=== PATIENT | male | born 1980 | race Hispanic/Latino ===

== ENCOUNTER 2018-07-20 17:50 | Emergency (ER) | payer BC ==
[2018-07-20 19:08] LABS: Absolute Monocytes 0.7 K/uL (0.1-1.3); Basophils % 1.7 % (0-1.3); Eosinophils % 4.5 % (0-4.4); Hematocrit 48.8 % (39.6-49.0); Lymphocytes % 24.6 % (15.3-44.8); MCH 30.6 pg (27.0-35.0); MCV 88.8 fL (80-100); MPV 8.6 fL (7.6-11.3); Monocytes % 8.7 % (3.3-12.3)
[2018-07-20] MEDS ORDERED: KETOROLAC 30 MG/ML INJ ONE (19:13)
--- NOTE | 2018-07-20 19:14 | RAD REPORT ---
EXAM DESCRIPTION: CT - Stone Protocol - 07/20/2018 7:04 pm CLINICAL HISTORY: Flank pain. right lower back pain COMPARISON: No comparisons TECHNIQUE: Axial images were obtained without oral or IV contrast. Lack of contrast limits solid org an and vascular assessment. The pfcba-sp-pees spans the entirety of the system partially obscuring uppermost abdomen and lung bases. Coronal reformatted images were obtained and reviewed. All CT scans are performed using dose optimization technique as appropriate and may include automated exposure control or mA/KV adjustment according to patient size. FINDINGS: The lower lung peñaloza are clear. Imaged portions of the liver and spleen show no suspicious findings on non-contrast imaging. The panc reas and adrenal glands are normal. No pathologic lymphadenopathy in the abdomen or pelvis. No urinary tract stones or obstructive uropathy. 13 mm cyst is present cortex of left kidney. No bowel obstruction, free air, free fluid or abscess. Normal appendix noted.Sigmoid diverticulosis c herb without diverticulitis. No significant bony abnormality. IMPRESSION: No urinary tract stones or obstructive uropathy.
[2018-07-20 19:29] LABS: Albumin 3.7 g/dL (3.4-5.0); Bilirubin Direct 0.2 mg/dL (0-0.2); Bilirubin Total 0.5 mg/dL (0.2-1.0); Potassium 3.4 mmol/L (3.5-5.1); Protein, Total 7.5 g/dL (6.4-8.2)
[2018-07-20 19:35] LABS: Urine Blood TRACE (NEG); Urine Glucose NEGATIVE (NEG); Urine Protein NEGATIVE (NEG); Urine Specific Gravity 1.025 (1.005-1.030)
--- NOTE | 2018-07-20 19:45 | RAD REPORT ---
EXAM DESCRIPTION: RAD - Forearm Right - 07/20/2018 7:19 pm CLINICAL HISTORY: Pain;Swelling COMPARISON: No comparisons FINDINGS: No bone or joint abnormality is detected.
--- NOTE | 2018-07-20 20:31 | EDPHYS ---
Physician Documentation [facility] Name: Isaac Metcalf Age: 37 yrs Sex: Male : 1980 Arrival Date: 07/20/2018 Time: 17:53 Bed 28 Private MD: Raphael Johnson ED Physician Albert Tolbert HPI: 07/20 18:35 This 37 yrs old Male presents to ER via Ambulatory with complaints of Back cp Pain, Arm Pain, Blood Pressure Problem. 18:35 The patient presents with pain that is acute, with no known mechanism of injury. cp 18:35 The symptoms are located in the low back. Onset: The symptoms/episode began/occurred 2 cp day(s) ago. The pain radiates to the right buttock. Associated signs and symptoms: Pertinent positives: elevated blood pressure, Pertinent negatives: abdominal pain, chest pain, constipation, fever, headache, incontinence, numbness, tingling, urinary retention, weakness. The problem was sustained bending and lifting at work. Patient also c/o pain right forearm after striking arm against hard object. Reports swelling to right forearm and tingling in fingers. Historical: - Allergies: 18:00 No Known Allergies; aa5 - PMHx: 18:00 Hypertension; Anxiety; aa5 - PSHx: 18:00 dwight legs; aa5 - Immunization history:: Flu vaccine is not up to date. - Social history:: Smoking status: Patient uses tobacco products, 1 pack a week . - Ebola Screening: : No symptoms or risks identified at this time. ROS: 18:40 Constitutional: Negative for body aches, chills, fever, poor PO intake. cp 18:40 Eyes: Negative for injury, pain, redness, and discharge. cp 18:40 ENT: Negative for drainage from ear(s), ear pain, sore throat, difficulty swallowing, difficulty handling secretions. 18:40 Neck: Negative for pain with movement, pain at rest, stiffness, tenderness. 18:40 Cardiovascular: Negative for chest pain, edema, palpitations. 18:40 Respiratory: Negative for cough, shortness of breath, wheezing. 18:40 Abdomen/GI: Negative for abdominal pain, nausea, vomiting, and diarrhea, constipation, anorexia, black/tarry stool, rectal bleeding. 18:40 Abdomen/GI: Negative for bowel incontinence. 18:40 Back: Positive for pain at rest, pain with movement, of the lumbar area and right low back. 18:40 : Negative for urinary symptoms, bladder incontinence, testicular pain 18:40 MS/extremity: Positive for pain, swelling, tenderness, of the right forearm. 18:40 Neuro: Negative for gait disturbance, headache, numbness, weakness. 18:40 All other systems are negative. Exam: 18:45 Constitutional: The patient appears in no acute distress, alert, awake, non-toxic, well cp developed, well nourished. 18:45 Head/Face: Normocephalic, atraumatic. Eyes: Pupils equal round and reactive to light, cp extra-ocular motions intact. Lids and lashes normal. Conjunctiva and sclera are non-icteric and not injected. Cornea within normal limits. Periorbital areas with no swelling, redness, or edema. ENT: Nares patent. No nasal discharge, no septal abnormalities noted. Tympanic membranes are normal and external auditory canals are clear. Oropharynx with no redness, swelling, or masses, exudates, or evidence of obstruction, uvula midline. Mucous membranes moist. Neck: Trachea midline, no thyromegaly or masses palpated, and no cervical lymphadenopathy. Supple, full range of motion without nuchal rigidity, or vertebral point tenderness. No Meningismus. Chest/axilla: Normal chest wall appearance and motion. Nontender with no deformity. No lesions are appreciated. 18:45 Cardiovascular: Rate: normal, Rhythm: regular, Heart sounds: murmur, not appreciated, Edema: is not appreciated. 18:45 Respiratory: the patient does not display signs of respiratory distress, Respirations: normal, no use of accessory muscles, no retractions, no splinting, no tachypnea, labored breathing, is not present, Breath sounds: are clear throughout, no decreased breath sounds, no stridor, no wheezing. 18:45 Abdomen/GI: Inspection: abdomen appears normal, Bowel sounds: active, all quadrants, Palpation: abdomen is soft and non-tender, in all quadrants, rebound tenderness, is not appreciated, voluntary guarding, is not appreciated, involuntary guarding, is not appreciated. 18:45 Back: pain, that is moderate, of the lumbar area and right low back, ROM is painful, with flexion, Straight leg raises: of both lower extremities does not illicit pain. 18:45 Musculoskeletal/extremity: Extremities: grossly normal except: noted in the right forearm: pain, swelling, tenderness, There is no evidence of decreased ROM, deformity. 18:45 Skin: cellulitis, is not appreciated, no rash present. 18:45 Neuro: Orientation: to person, place \T\ time. Mentation: lucid, able to follow commands, Cerebellar function: is grossly normal, Motor: moves all fours, strength is normal, Sensation: no obvious gross deficits, Gait: is steady, Deep tendon reflexes are 2+ (normal) in the right patellar, right Achilles, left patellar and left Achilles. Vital Signs: 18:01 BP 150 / 115; Pulse 98; Resp 16 S; Temp 98.6(TE); Pulse Ox 96% on R/A; Weight 115.21 kg aa5 (R); Height 5 ft. 9 in. (175.26 cm) (R); Pain 9/10; 20:58 BP 135 / 99; Pulse 89; Pulse Ox 100% on R/A; rv 18:01 Body Mass Index 37.51 (115.21 kg, 175.26 cm) aa5 MDM: 18:22 Patient medically screened. cp 19:00 Differential diagnosis: Cholelithiasis chronic back pain, Pyelonephritis ruptured disc, cp spinal injury, sprain, Ureterolithiasis vertebral fracture. 20:30 Data reviewed: vital signs, nurses notes, lab test result(s), radiologic studies, CT cp scan, plain films. 20:30 Test interpretation: by ED physician or midlevel provider: plain radiologic studies. cp Counseling: I had a detailed discussion with the patient and/or guardian regarding: the historical points, exam findings, and any diagnostic results supporting the discharge/admit diagnosis, lab results, radiology results, the need for outpatient follow up, a family practitioner, to return to the emergency department if symptoms worsen or persist or if there are any questions or concerns that arise at home. Response to treatment: the patient's symptoms have mildly improved after treatment, VSS. Radiology studies negative for acute findings. Will discharge to home for continued monitoring, and as a result, I will discharge patient. 07/20 18:29 Order name: Urine Dipstick--Ancillary (enter results); Complete Time: 19:50 eb 07/20 18:32 Order name: Basic Metabolic Panel; Complete Time: 19:50 cp 07/20 18:32 Order name: XRAY Forearm RIGHT; Complete Time: 19:50 cp 07/20 18:32 Order name: CBC with Diff; Complete Time: 19:50 cp 07/20 18:32 Order name: LFT's; Complete Time: 19:50 cp 07/20 18:32 Order name: Magnesium; Complete Time: 19:50 cp 07/20 18:32 Order name: EKG; Complete Time: 18:32 cp 07/20 18:32 Order name: Cardiac monitoring; Complete Time: 19:36 cp 07/20 18:32 Order name: EKG - Nurse/Tech; Complete Time: 19:36 cp 07/20 18:32 Order name: IV Saline Lock; Complete Time: 19:09 cp 07/20 18:32 Order name: Labs collected and sent; Complete Time: 19:09 cp 07/20 18:32 Order name: O2 Per Protocol; Complete Time: 19:09 cp 07/20 18:32 Order name: CT Stone Protocol; Complete Time: 19:50 cp 07/20 18:32 Order name: O2 Sat Monitoring; Complete Time: 19:09 cp 07/20 18:32 Order name: Urine Dipstick-Ancillary (obtain specimen); Complete Time: 19:22 cp Administered Medications: 19:21 Drug: TORadol 30 mg Route: IVP; Site: right antecubital; rv 21:00 Follow up: Response: No adverse reaction rv Disposition: 07/20/18 20:30 Discharged to Home. Impression: Hypertensive heart disease, Low back pain, Radiculopathy, lumbar region, Pain in right forearm. - Condition is Stable. - Discharge Instructions: Back Pain, Adult, Hypertension, How to Take Your Blood Pressure, Vicp-[id number], Back Exercises, [id number], Managing Your Hypertension. - Prescriptions for Cyclobenzaprine 10 mg Oral Tablet - take 1 tablet by ORAL route every 8 hours As needed no driving while taking medication; 20 tablet. Tramadol 50 mg Oral Tablet - take 1 tablet by ORAL route every 8 hours as needed. no driving while taking medication; 20 tablet. Medrol (Steve) 4 mg Oral Tablets, Dose Pack - take 1 tablet by ORAL route as directed - follow package instructions; 1 packet. - Medication Reconciliation Form, Thank You Letter, Antibiotic Education, Prescription Opioid Use, Work release form form. - Follow up: Private Physician; When: 2 - 3 days; Reason: Recheck today's complaints. - Problem is new. - Symptoms have improved. Addendum: 07/22/2018 07:16 Co-signature as Attending Physician, Albert Tolbert MD I agree with the assessment and c londono plan of care. Signatures: Dispatcher [employer] EDAlbert Peña MD MD cha Calderon, Audri, RN RN aa5 Albert Espinoza PA PA Javier Lee RN RN rv Corrections: (The following items were deleted from the chart) 07/20 21:00 20:30 07/20/2018 20:30 Discharged to Home. Impression: Hypertensive heart disease; Low rv back pain; Radiculopathy, lumbar region; Pain in right forearm. Condition is Stable. Forms are Medication Reconciliation Form, Thank You Letter, Antibiotic Education, Prescription Opioid Use. Follow up: Private Physician; When: 2 - 3 days; Reason: Recheck today's complaints. Problem is new. Symptoms have improved. cp
--- NOTE | 2018-07-20 20:31 | ER ---
Nurse's Notes [facility] Name: Isaac Metcalf Age: 37 yrs Sex: Male : 1980 Arrival Date: 07/20/2018 Time: 17:53 Bed 28 Private MD: Raphael Johnson Diagnosis: Hypertensive heart disease;Low back pain;Radiculopathy, lumbar region;Pain in right forearm Presentation: 07/20 17:58 Presenting complaint: Patient states: "my blood pressure has been high since Monday, aa5 it's been 180/120". Pt states "I've been taking lisinopril and clonidine". Pt also c/o right low back pain since Monday. Pt also reports nausea. Pt states "my right forearm also hurts". Transition of care: patient was not received from another setting of care. Onset of symptoms was June 2018. Risk Assessment: Do you want to hurt yourself or someone else? Patient reports no desire to harm self or others. Initial Sepsis Screen: Does the patient meet any 2 criteria? No. Patient's initial sepsis screen is negative. Does the patient have a suspected source of infection? No. Patient's initial sepsis screen is negative. Care prior to arrival: None. 17:58 Method Of Arrival: Ambulatory aa5 17:58 Acuity: MARK ANTHONY 3 aa5 Historical: - Allergies: 18:00 No Known Allergies; aa5 - PMHx: 18:00 Hypertension; Anxiety; aa5 - PSHx: 18:00 dwight legs; aa5 - Immunization history:: Flu vaccine is not up to date. - Social history:: Smoking status: Patient uses tobacco products, 1 pack a week . - Ebola Screening: : No symptoms or risks identified at this time. Screenin:09 Abuse screen: Denies threats or abuse. Denies injuries from another. Nutritional rv screening: No deficits noted. Tuberculosis screening: No symptoms or risk factors identified. Fall Risk None identified. Assessment: 19:09 General: Appears in no apparent distress. comfortable, Behavior is calm, cooperative. rv Pain: Complains of pain in back, right arm and right leg. Neuro: Level of Consciousness is awake, alert, obeys commands, Oriented to person, place, time, situation. Cardiovascular: Capillary refill < 3 seconds. Respiratory: Airway is patent. GI: No signs and/or symptoms were reported involving the gastrointestinal system. : No signs and/or symptoms were reported regarding the genitourinary system. EENT: No signs and/or symptoms were reported regarding the EENT system. Derm: Skin is intact. Vital Signs: 18:01 BP 150 / 115; Pulse 98; Resp 16 S; Temp 98.6(TE); Pulse Ox 96% on R/A; Weight 115.21 kg aa5 (R); Height 5 ft. 9 in. (175.26 cm) (R); Pain 9/10; 20:58 BP 135 / 99; Pulse 89; Pulse Ox 100% on R/A; rv 18:01 Body Mass Index 37.51 (115.21 kg, 175.26 cm) aa5 ED Course: 17:53 Patient arrived in ED. mr 17:54 Raphael Johnson MD is Private Physician. mr 18:00 Triage completed. aa5 18:00 Arm band placed on. aa5 18:22 [facility]. cp 18:22 Albert Tolbert MD is Attending Physician. cp 19:00 Patient moved to ND via wheelchair. nj 19:00 Inserted saline lock: 20 gauge in right antecubital area, using aseptic technique. rv Blood collected. 19:04 CT completed. Patient tolerated procedure well. Patient moved back from ND. nj 19:05 CT Stone Protocol In Process Unspecified. EDMS 19:10 Patient has correct armband on for positive identification. Bed in low position. Call rv light in reach. Side rails up X 1. monitor car operator on. Pulse ox on. NIBP on. 19:17 XRAY Forearm RIGHT In Process Unspecified. EDMS 19:36 EKG done, by ED staff, reviewed by Albert Tolbert MD. ds4 21:00 No provider procedures requiring assistance completed. IV discontinued, bleeding rv controlled, No redness/swelling at site. Pressure dressing applied. Administered Medications: 19:21 Drug: TORadol 30 mg Route: IVP; Site: right antecubital; rv 21:00 Follow up: Response: No adverse reaction rv Outcome: 20:30 Discharge ordered by . cp 20:59 Discharged to home ambulatory. rv 20:59 Condition: improved 20:59 Discharge instructions given to patient, Instructed on discharge instructions, follow up and referral plans. medication usage, Demonstrated understanding of instructions, follow-up care, medications, Prescriptions given X 3. 21:00 Patient left the ED. rv Signatures: Dispatcher [employer] MINO ChicasShari Cora Valdivia, RN RN aa5 Yasir Chacko ds4 Albert Espinoza PA PA cp Jordan, Nathan nj Vicente, Ronaldo, RN RN rv Corrections: (The following items were deleted from the chart) 18:03 17:58 Presenting complaint: Patient states: "my blood pressure has been high since aa5 Monday, it's been 180/120". Pt states "I've been taking lisinopril and clonidine". Pt also c/o right low back pain since Monday. Pt also reports nausea. aa5
--- NOTE | 2018-07-22 06:46 | EKG ---
Test Date: 2018-07-20 Test Time: 19:31:14 Coding Clerk: TIGRE MEASUREMENT RESULTS: Intervals: Rate: 70 LA: 156 QRSD: 100 QT: 380 QTc: 410 [place]: P: 16 LA: 156 QRS: -19 T: -2 INTERPRETIVE STATEMENTS: Normal sinus rhythm Moderate voltage criteria for LVH, may be normal variant Borderline ECG Compared to ECG 02/19/2013 01:04:30 No significant changes Electronically Signed On 07-22-18 06:45:23 CDT by Clint Ya
== END 2018-07-20 21:00 | disposition home or self-care (01) ==
LOC: ER 17:50
DX: I11.9 Hypertensive heart disease without heart failure (principal); M54.16 Radiculopathy, lumbar region; M79.631 Pain in right forearm; F41.9 Anxiety disorder, unspecified; Z72.0 Tobacco use
CPT/HCPCS: 36415; 74176; 76377; 80048; 80076; 81003; 83735; 85025; 93005; 96374; 99285

== ENCOUNTER 2019-01-02 22:41 | Emergency (ER) | payer BC ==
--- OUTSIDE RECORDS SUMMARY | 2019-01-02 22:43 | XMS REPORT ---
:1980 [facility] Address [address] [place] [address] Dr. Perez [address] [place] [id number] Care Team Providers Name Role Phone Unavailable Unavailable Unavailable Problems This patient has no known problems. Allergies, Adverse Reactions, Alerts This patient has no known allergies or adverse reactions. Medications This patient has no known medications.
[2019-01-02 23:31] LABS: Absolute Lymphocytes (CBC) 2.1 K/uL (0.7-4.9); Absolute Monocytes 0.8 K/uL (0.1-1.3); Absolute Neutrophil 6.5 K/uL (1.8-8.0); Basophils % 0.8 % (0-1.3); Eosinophils % 3.2 % (0-4.4); Hematocrit 43.5 % (39.6-49.0); Lymphocytes % 21.5 % (15.3-44.8); MPV 7.8 fL (7.6-11.3); Monocytes % 7.7 % (3.3-12.3); RBC Red Blood Cell Count 5.03 M/uL (4.33-5.43)
[2019-01-02 23:34] LABS: Potassium 3.4 mmol/L (3.5-5.1)
--- NOTE | 2019-01-03 00:31 | ER ---
Nurse's Notes [facility] Name: Isaac Metcalf Age: 38 yrs Sex: Male : 1980 Arrival Date: 01/02/2019 Time: 22:45 Bed 5 Private MD: Raphael Johnson Diagnosis: Acute bronchitis;Vomiting Presentation: 01/02 22:46 Presenting complaint: Patient states: I was diagnosed with the flu 2 days ago, I am jb4 having chest pain when I through up and have a productive cough with body aches and chills. I have been vomiting blood, it is red and pink, and my mucus is green and brown. 22:46 Transition of care: patient was not received from another setting of care. Onset of jb4 symptoms was December 31, 2018. Risk Assessment: Do you want to hurt yourself or someone else? Patient reports no desire to harm self or others. Initial Sepsis Screen: Does the patient meet any 2 criteria? No. Patient's initial sepsis screen is negative. Does the patient have a suspected source of infection? No. Patient's initial sepsis screen is negative. Care prior to arrival: None. 22:46 Method Of Arrival: Ambulatory jb4 22:46 Acuity: MARK ANTHONY 3 jb4 Triage Assessment: 22:46 General: Appears in no apparent distress. uncomfortable, Behavior is calm, cooperative. jb4 Pain: Complains of pain in chest, generalized body aches Pain currently is 10 out of 10 on a pain scale. Historical: - Allergies: 22:46 No Known Allergies; jb4 - Home Meds: 22:46 tylenol [Active]; Aleve Oral [Active]; Motrin Oral [Active]; Lisinopril Oral [Active]; jb4 Alprazolam Oral [Active]; - PMHx: 22:46 Anxiety; Hypertension; Depression; jb4 - PSHx: 22:46 leg; Left arm; jb4 - Immunization history:: Adult Immunizations up to date, Flu vaccine is not up to date. - Social history:: Smoking status: Patient uses tobacco products, smokes .25 packs per day, Patient/guardian denies using alcohol. - Ebola Screening: : No symptoms or risks identified at this time. Screenin/14 00:29 Abuse screen: Denies threats or abuse. Denies injuries from another. Nutritional lp1 screening: No deficits noted. Tuberculosis screening: No symptoms or risk factors identified. Fall Risk None identified. Assessment: 01/02 23:00 General: Appears in no apparent distress. Behavior is calm. Pain: Denies pain. Neuro: lp1 Level of Consciousness is awake, alert, obeys commands. Cardiovascular: Patient's skin is warm and dry. Respiratory: Reports cough that is productive, Respiratory effort is even, unlabored, Respiratory pattern is regular, Breath sounds are clear bilaterally. GI: Reports vomiting. : No signs and/or symptoms were reported regarding the genitourinary system. EENT: Reports nasal congestion. Derm: Skin is pink, warm \T\ dry. Musculoskeletal: Circulation, motion, and sensation intact. 01/03 00:00 Reassessment: Patient appears in no apparent distress at this time. No changes from lp1 previously documented assessment. Patient and/or family updated on plan of care and expected duration. Pain level reassessed. Vital Signs: 01/02 22:46 BP 147 / 108; Pulse 89; Resp 18; Temp 98.3(O); Pulse Ox 96% on R/A; Weight 116.57 kg jb4 (R); Height 5 ft. 9 in. (175.26 cm) (R); Pain 10/10; 01/03 00:39 BP 150 / 113; Pulse 90; Resp 18; Pulse Ox 97% on R/A; lp1 01/02 22:46 Body Mass Index 37.95 (116.57 kg, 175.26 cm) jb4 ED Course: 01/02 22:45 Patient arrived in ED. am2 22:46 Raphael Johnson MD is Private Physician. am2 22:46 Arm band placed on right wrist. jb4 22:49 Cami Short, MERON is Primary Nurse. lp1 22:50 Adam Velez MD is Attending Physician. gs 23:00 Triage completed. jb4 23:00 Patient has correct armband on for positive identification. lp1 23:16 Initial lab(s) drawn, by me, sent to lab. Flu and/or RSV swab sent to lab. Strep swab lp1 sent to lab. 23:19 Patient moved to radiology via wheelchair. az 23:19 X-ray completed. Patient tolerated procedure well. az 23:25 Patient moved back from radiology. az 23:26 XRAY Chest Pa And Lat (2 Views) In Process Unspecified. EDMS 01/03 00:30 No provider procedures requiring assistance completed. Patient did not have IV access lp1 during this emergency room visit. Administered Medications: No medications were administered Outcome: 00:30 Discharge ordered by . gs 00:40 Discharged to home ambulatory. lp1 00:40 Condition: good 00:40 Discharge instructions given to patient, Instructed on discharge instructions, follow up and referral plans. medication usage, Demonstrated understanding of instructions, follow-up care, medications, Prescriptions given X 3. 00:40 Patient left the ED. lp1 Signatures: Dispatcher [employer] EDMS Cami Short RN RN lp1 Mani Gould RN RN jb4 Kim France am2 Adam Velez MD MD gs Zavala, Araceli az Corrections: (The following items were deleted from the chart) 01/02 23:04 23:03 General: Appears in no apparent distress. uncomfortable, Behavior is calm, jb4 cooperative, jb4 23:04 23:03 Pain: Complains of pain in chest, generalized body aches Pain currently is 10 out jb4 of 10 on a pain scale. jb4
--- NOTE | 2019-01-03 00:31 | EDPHYS ---
Physician Documentation [facility] Name: Isaac Metcalf Age: 38 yrs Sex: Male : 1980 Arrival Date: 01/02/2019 Time: 22:45 Bed 5 Private MD: Raphael Johnson ED Physician Adam Velez HPI: 01/03 00:49 This 38 yrs old Male presents to ER via Ambulatory with complaints of Flu gs Symptoms. 00:49 Onset: The symptoms/episode began/occurred 2 day(s) ago. Modifying factors: there are gs no obvious modifying factors. Associated signs and symptoms: Pertinent positives: cough, with green sputum, decreased appetite, vomiting. Associated signs and symptoms: Pertinent positives: cough, that has streaks of blood. Severity of symptoms: At their worst the symptoms were moderate in the emergency department the symptoms are unchanged. The patient has experienced similar episodes in the past, a few times. Historical: - Allergies: 01/02 22:46 No Known Allergies; jb4 - Home Meds: 22:46 tylenol [Active]; Aleve Oral [Active]; Motrin Oral [Active]; Lisinopril Oral [Active]; jb4 Alprazolam Oral [Active]; - PMHx: 22:46 Anxiety; Hypertension; Depression; jb4 - PSHx: 22:46 leg; Left arm; jb4 - Immunization history:: Adult Immunizations up to date, Flu vaccine is not up to date. - Social history:: Smoking status: Patient uses tobacco products, smokes .25 packs per day, Patient/guardian denies using alcohol. - Ebola Screening: : No symptoms or risks identified at this time. ROS: 01/03 00:49 All other systems are negative. gs Exam: 00:49 Head/Face: Normocephalic, atraumatic. Eyes: Pupils equal round and reactive to light, gs extra-ocular motions intact. Lids and lashes normal. Conjunctiva and sclera are non-icteric and not injected. Cornea within normal limits. Periorbital areas with no swelling, redness, or edema. ENT: Nares patent. No nasal discharge, no septal abnormalities noted. Tympanic membranes are normal and external auditory canals are clear. Oropharynx with no redness, swelling, or masses, exudates, or evidence of obstruction, uvula midline. Mucous membranes moist. Neck: Trachea midline, no thyromegaly or masses palpated, and no cervical lymphadenopathy. Supple, full range of motion without nuchal rigidity, or vertebral point tenderness. No Meningismus. Chest/axilla: Normal chest wall appearance and motion. Nontender with no deformity. No lesions are appreciated. Cardiovascular: Regular rate and rhythm with a normal S1 and S2. No gallops, murmurs, or rubs. Normal PMI, no JVD. No pulse deficits. Respiratory: Lungs have equal breath sounds bilaterally, clear to auscultation and percussion. No rales, rhonchi or wheezes noted. No increased work of breathing, no retractions or nasal flaring. Abdomen/GI: Soft, non-tender, with normal bowel sounds. No distension or tympany. No guarding or rebound. No evidence of tenderness throughout. Back: No spinal tenderness. No costovertebral tenderness. Full range of motion. Skin: Warm, dry with normal turgor. Normal color with no rashes, no lesions, and no evidence of cellulitis. MS/ Extremity: Pulses equal, no cyanosis. Neurovascular intact. Full, normal range of motion. Neuro: Awake and alert, GCS 15, oriented to person, place, time, and situation. Cranial nerves II-XII grossly intact. Motor strength 5/5 in all extremities. Sensory grossly intact. Cerebellar exam normal. Normal gait. 00:49 Constitutional: The patient appears alert, awake. Vital Signs: 01/02 22:46 BP 147 / 108; Pulse 89; Resp 18; Temp 98.3(O); Pulse Ox 96% on R/A; Weight 116.57 kg jb4 (R); Height 5 ft. 9 in. (175.26 cm) (R); Pain 10/10; 01/03 00:39 BP 150 / 113; Pulse 90; Resp 18; Pulse Ox 97% on R/A; lp1 01/02 22:46 Body Mass Index 37.95 (116.57 kg, 175.26 cm) jb4 MDM: 01/02 22:58 Patient medically screened. gs 01/03 00:49 Differential diagnosis: viral Infection, bacterial infection, URI, pneumonia. Data gs reviewed: vital signs, nurses notes. Counseling: I had a detailed discussion with the patient and/or guardian regarding: the historical points, exam findings, and any diagnostic results supporting the discharge/admit diagnosis, lab results, radiology results, the need for outpatient follow up. Response to treatment: the patient's symptoms have markedly improved after treatment, the patient is now symptom free, and as a result, I will discharge patient. 01/02 23:02 Order name: CBC with Diff; Complete Time: 00:19 01/02 23:02 Order name: Basic Metabolic Panel; Complete Time: 00:19 01/02 23:02 Order name: Strep; Complete Time: 00:19 01/02 23:02 Order name: Influenza Screen (a \T\ B); Complete Time: 00:19 01/02 23:02 Order name: XRAY Chest Pa And Lat (2 Views) 01/02 23:41 Order name: Throat Culture EDAZ Administered Medications: No medications were administered Disposition: 01/03/19 00:30 Discharged to Home. Impression: Acute bronchitis, Vomiting. - Condition is Stable. - Discharge Instructions: Acute Bronchitis, Adult, Nausea and Vomiting, Adult. - Prescriptions for Zofran 4 mg Oral Tablet - take 1 tablet by ORAL route every 12 hours As needed; 6 tablet. Zithromax Z- Steve 250 mg Oral Tablet - take 1 tablet by ORAL route as directed for 5 days Day 1 - take two (2) tablets one time. Day 2, 3, 4 , 5 take one (1) tablet once daily.; 6 tablet. Albuterol Sulfate 90 mcg/actuation - inhale 1-2 puff by INHALATION route every 4-6 hours; 1 Inhaler. - Medication Reconciliation Form, Thank You Letter, Antibiotic Education, Prescription Opioid Use form. - Follow up: Private Physician; When: 1 - 2 days; Reason: Re-evaluation by your physician. Signatures: [facility] Cami Short RN RN lp1 Mani Gould RN RN jb4 Adam Velez MD MD gs Corrections: (The following items were deleted from the chart) 00:40 00:30 01/03/2019 00:30 Discharged to Home. Impression: Acute bronchitis; Vomiting. lp1 Condition is Stable. Forms are Medication Reconciliation Form, Thank You Letter, Antibiotic Education, Prescription Opioid Use. Follow up: Private Physician; When: 1 - 2 days; Reason: Re-evaluation by your physician. gs
--- NOTE | 2019-01-03 06:37 | RAD REPORT ---
EXAM DESCRIPTION: Ran Montoya And Kristina (2 Views)01/02/2019 11:26 pm CLINICAL HISTORY: Cough COMPARISON: 2013 FINDINGS: An area of subsegmental atelectasis is present within the right middle lobe Remainder lungs appear clear. The heart is normal size
== END 2019-01-03 00:40 | disposition home or self-care (01) ==
LOC: ER 22:41
DX: J20.9 Acute bronchitis, unspecified (principal); R11.10 Vomiting, unspecified; I10 Essential (primary) hypertension; F32.9 Major depressive disorder, single episode, unspecified; F41.9 Anxiety disorder, unspecified; F17.210 Nicotine dependence, cigarettes, uncomplicated
CPT/HCPCS: 36415; 71046; 80048; 85025; 87070; 87081; 87804; 99283

== ENCOUNTER 2019-03-30 13:59 | Emergency (ER) | payer BC ==
--- OUTSIDE RECORDS SUMMARY | 2019-03-30 14:01 | XMS REPORT ---
:1980 [facility] Address [address] [place] [address] Dr. Perez [address] [place] [id number] Care Team Providers Name Role Phone Unavailable Unavailable Unavailable Problems This patient has no known problems. Allergies, Adverse Reactions, Alerts This patient has no known allergies or adverse reactions. Medications This patient has no known medications.
--- OUTSIDE RECORDS SUMMARY | 2019-03-30 14:01 | XMS REPORT ---
:1980 Author Organization [employer] Care Team Providers Name Role Phone [facility] Provider Role Unavailable Allergies, Adverse Reactions, Alerts Substance Reaction Event Type N.K.D.A. 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 without prior episode Assessment Adult BMI 45.0-49.9 kg/sq m Z68.42 Active Assessment Tobacco use disorder, continuous F17.209 Active Assessment Generalized anxiety disorder F41.1 Active Problem Panic disorder [episodic paroxysmal F41.0 Active anxiety] Problem HTN, goal below 140/90 I10 Active Problem Generalized anxiety disorder F41.1 Active Problem Adult BMI 45.0-49.9 kg/sq m Z68.42 Active Problem Current mild episode of major F32.0 Active depressive disorder without prior episode Problem Tobacco use disorder, continuous F17.209 Active Medications Medication Code Code Instructions Start End Status Dosage System Date Date Lisinopril [facility] 82851180523 40 MG Orally Active 1 tablet Once a day Furosemide ND 32914918742 20 MG Orally Active 1 tablet Once a day Clonidine HCl ND 78575350337 0.1 MG Orally February 14, Active 1 tablet Once a day 2019 at bedtime Xanax [facility] 13335226879 1 MG Orally Active 1 tablet Twice a day Results No Known Results Summary Purpose [employer] Submission
[2019-03-30] MEDS ORDERED: IBUPROFEN 400 MG TAB ONE (14:45)
[2019-03-30] MEDS ORDERED: cloNIDine HCl 0.1 MG TAB ONE (15:38)
[2019-03-30 16:03] LABS: Urine Blood 2+ (NEG); Urine Glucose NEGATIVE (NEG); Urine Protein 1+ (NEG)
[2019-03-30] MEDS ORDERED: NA CHLORIDE 0.9% 1,000 ML ONE (16:13)
[2019-03-30 16:18] LABS: Urine Bacteria >50 /HPF (NONE SEEN)
[2019-03-30 16:19] LABS: Urine Culture Reflex Order REFLEXED
[2019-03-30 16:22] LABS: Potassium 3.7 mmol/L (3.5-5.1)
--- NOTE | 2019-03-30 16:35 | ER ---
Nurse's Notes [facility] Name: Isaac Metcalf Age: 38 yrs Sex: Male : 1980 Arrival Date: 03/30/2019 Time: 14:02 Bed 25 Private MD: Johnathan Gómez Diagnosis: Urinary tract infection, site not specified Presentation: 03/30 14:05 Presenting complaint: Patient states: i have been sick for 4 days and i have taken tw2 everything i can think of to get my fever down but it wont barely break 100, i had a trifeca break in my LEFT arm in November and i might be getting an infection, i have been coughing and this is the 2nd time i have caught a fever. Transition of care: patient was not received from another setting of care. Onset of symptoms was March 30, 2019. Risk Assessment: Do you want to hurt yourself or someone else? Patient reports no desire to harm self or others. Initial Sepsis Screen: Does the patient meet any 2 criteria? No. Patient's initial sepsis screen is negative. Does the patient have a suspected source of infection? Yes: Skin breakdown/wound. Care prior to arrival: None. 14:05 Method Of Arrival: Ambulatory tw2 14:05 Acuity: MARK ANTHONY 3 tw2 Triage Assessment: 14:09 General: Appears in no apparent distress. Behavior is calm, cooperative, appropriate tw2 for age. Pain: Complains of pain in left arm. Historical: - Home Meds: 14:10 lisinopril 40 mg oral tab [Active]; alprazolam 1 mg oral tab [Active]; furosemide 20 mg tw2 Oral tab 1 tab once daily [Active]; clonidine HCl 0.1 mg Oral tab 1 tab once daily [Active]; - PMHx: 14:10 Anxiety; Depression; Hypertension; tw2 - PSHx: 14:10 leg; Left arm; tw2 - Immunization history:: Adult Immunizations. - Social history:: Smoking status: . - Ebola Screening: : Patient denies travel to an Ebola-affected area in the 21 days before illness onset. Screenin:15 Abuse screen: Denies threats or abuse. Denies injuries from another. Nutritional ca1 screening: No deficits noted. Tuberculosis screening: No symptoms or risk factors identified. Fall Risk None identified. Assessment: 14:15 General: Appears in no apparent distress. comfortable, Behavior is calm, cooperative, ca1 appropriate for age. General: Reports fever for > 3 days. Pain: Denies pain. Neuro: Level of Consciousness is awake, alert, obeys commands, Oriented to person, place, time, situation. Neuro: Reports headache in entire since this morning. Cardiovascular: Heart tones S1 S2 present Capillary refill < 3 seconds Patient's skin is warm and dry. Respiratory: Reports cough that is non-productive, since yesterday Airway is patent Respiratory effort is even, unlabored, Respiratory pattern is regular, symmetrical, Breath sounds are clear bilaterally. GI: Abdomen is round non-distended, Bowel sounds present X 4 quads. Abd is soft and non tender X 4 quads. : No deficits noted. No signs and/or symptoms were reported regarding the genitourinary system. EENT: Throat is pink Reports nasal congestion since yesterday. Derm: Skin is intact, is healthy with good turgor, Skin is pink, warm \T\ dry. Musculoskeletal: Circulation, motion, and sensation intact. Capillary refill < 3 seconds, Range of motion: intact in all extremities. 14:57 Reassessment: Patient appears in no apparent distress at this time. Patient and/or ca1 family updated on plan of care and expected duration. Pain level reassessed. Patient is alert, oriented x 3, equal unlabored respirations, skin warm/dry/pink. 15:44 Reassessment: Patient appears in no apparent distress at this time. Patient is alert, ca1 oriented x 3, equal unlabored respirations, skin warm/dry/pink. 15:47 Reassessment: Patient appears in no apparent distress at this time. Patient is alert, ca1 oriented x 3, equal unlabored respirations, skin warm/dry/pink. 16:36 Reassessment: Patient appears in no apparent distress at this time. Patient is alert, ca1 oriented x 3, equal unlabored respirations, skin warm/dry/pink. 16:54 Reassessment: Patient appears in no apparent distress at this time. Patient is alert, ca1 oriented x 3, equal unlabored respirations, skin warm/dry/pink. Vital Signs: 14:08 BP 170 / 105; Pulse 127; Resp 19; Temp 99.4(O); Pulse Ox 95% on R/A; Weight 121.56 kg tw2 (R); Height 5 ft. 9 in. (175.26 cm); Pain 10/10; 14:57 BP 165 / 130; Pulse 125; Resp 18 S; Pulse Ox 95% on R/A; ca1 15:44 BP 154 / 104; Pulse 124; Resp 17 S; Temp 99.4(O); Pulse Ox 95% on R/A; ca1 15:47 BP 154 / 104; Pulse 124; Resp 17 S; Temp 99.4(O); Pulse Ox 98% on R/A; ca1 16:36 BP 144 / 96; Pulse 107; Resp 18 S; Temp 99.2(O); Pulse Ox 97% on R/A; ca1 14:08 Body Mass Index 39.58 (121.56 kg, 175.26 cm) tw2 ED Course: 14:02 Patient arrived in ED. rg4 14:02 Johnathan Gómez DO is Private Physician. rg4 14:08 Triage completed. tw2 14:09 Arm band placed on. tw2 14:10 Josefina Cobos FNP-C [facility]. kb 14:10 Andreas Ramey MD is Attending Physician. kb 14:15 Patient has correct armband on for positive identification. Bed in low position. Call ca1 light in reach. Side rails up X 1. Pulse ox on. NIBP on. 14:15 No provider procedures requiring assistance completed. ca1 14:21 Terri Barbosa, RN is Primary Nurse. ca1 14:42 Chest Pa And Lat (2 Views) XRAY In Process Unspecified. EDMS 15:50 Inserted saline lock: 20 gauge in right antecubital area, using aseptic technique. ca1 Blood collected. 16:54 IV discontinued, intact, bleeding controlled, No redness/swelling at site. Pressure ca1 dressing applied. Administered Medications: 14:33 Drug: Ibuprofen 800 mg Route: PO; ca1 16:04 Follow up: Response: No adverse reaction; Pain is decreased ca1 15:24 Drug: cloNIDine 0.1 mg Route: PO; ca1 16:41 Follow up: Response: No adverse reaction; Blood pressure is lowered ca1 16:04 Drug: NS 0.9% 1000 ml Route: IV; Rate: 1000 ml; Site: right antecubital; ca1 16:55 Follow up: Urine output 260 ml; Response: No adverse reaction; IV Status: Completed ca1 infusion 16:41 Drug: Rocephin 1 grams Route: IV; Rate: calculated rate; Site: right antecubital; ca1 16:55 Follow up: Response: No adverse reaction; IV Status: Completed infusion ca1 Output: 16:55 Urine: 260ml; Total: 260ml. ca1 Outcome: 16:35 Discharge ordered by MD. fowler 16:54 Discharged to home ambulatory. ca1 16:54 Condition: stable 16:54 Discharge instructions given to patient, Instructed on discharge instructions, follow up and referral plans. medication usage, Demonstrated understanding of instructions, follow-up care, medications, Prescriptions given X 1. 16:55 Patient left the ED. ca1 Addendum: 04/02/2019 10:15 Addendum: Culture Results: Positive urine culture. No further action required. Bacteria i w sensitive to prescribed antibiotic. Signatures: Dispatcher [employer] EDMS Josefina Cobos, CRANE FOLLOWER-C CRANE FOLLOWER-CkHalina Ramirez, RN RN iw Brianna Shea RN RN tw2 Bren Pennington 4 Terri Barbosa RN RN ca1 Corrections: (The following items were deleted from the chart) 03/30 15:56 15:47 BP 119 / 78; Pulse 82bpm; Resp 17bpm; Spontaneous; Pulse Ox 96% RA; Temp 98.9F ca1 Oral; ca1 16:05 14:15 Patient did not have IV access during this emergency room visit. ca1 ca1
--- NOTE | 2019-03-30 16:35 | EDPHYS ---
Physician Documentation [facility] Name: Isaac Metcalf Age: 38 yrs Sex: Male : 1980 Arrival Date: 03/30/2019 Time: 14:02 Bed 25 Private MD: Johnathan Gómez ED Physician Andreas Ramey HPI: 03/30 15:56 This 38 yrs old Male presents to ER via Ambulatory with complaints of Fever. kb 15:56 The patient or guardian reports cough, that is intermittent, described as mild, with no kb sputum, flu symptoms, low-grade fever, myalgias. Onset: The symptoms/episode began/occurred 4 day(s) ago. Modifying factors: The symptoms are alleviated by nothing. the symptoms are aggravated by nothing. Associated signs and symptoms: Pertinent positives: fever, sore throat, Pertinent negatives: chest pain, diarrhea, ear ache, nausea, rhinorrhea, vomiting. Severity of symptoms: At their worst the symptoms were moderate in the emergency department the symptoms are unchanged. The patient has not experienced similar symptoms in the past. The patient has not recently seen a physician. Pt reports he started having fever 4 days ago. States he has also had a cough and sore throat. Reports he has had pain at surgery site s/o fracture of left upper extremity and is worried he has an infection there. Reports pain has been the same since surgery. No increased pain or decreased ROM. Has MRI scheduled for the end of the month. Brace taken off of arm and arm examined. No redness, swelling, tenderness noted. . Historical: - Home Meds: 14:10 lisinopril 40 mg oral tab [Active]; alprazolam 1 mg oral tab [Active]; furosemide 20 mg tw2 Oral tab 1 tab once daily [Active]; clonidine HCl 0.1 mg Oral tab 1 tab once daily [Active]; - PMHx: 14:10 Anxiety; Depression; Hypertension; tw2 - PSHx: 14:10 leg; Left arm; tw2 - Immunization history:: Adult Immunizations. - Social history:: Smoking status: . - Ebola Screening: : Patient denies travel to an Ebola-affected area in the 21 days before illness onset. ROS: 15:43 Cardiovascular: Negative for chest pain, palpitations, and edema, Abdomen/GI: Negative kb for abdominal pain, nausea, vomiting, diarrhea, and constipation, Back: Negative for injury and pain, MS/Extremity: Negative for injury and deformity, Skin: Negative for injury, rash, and discoloration, Neuro: Negative for headache, weakness, numbness, tingling, and seizure. 15:43 Constitutional: Positive for chills, fever. 15:43 ENT: Positive for sore throat. 15:43 Respiratory: Positive for cough, Negative for dyspnea on exertion, hemoptysis, orthopnea, pleurisy, shortness of breath, sputum production, wheezing. Exam: 15:56 Constitutional: This is a well developed, well nourished patient who is awake, alert, kb and in no acute distress. Head/Face: Normocephalic, atraumatic. ENT: Nares patent. No nasal discharge, no septal abnormalities noted. Tympanic membranes are normal and external auditory canals are clear. Oropharynx with no redness, swelling, or masses, exudates, or evidence of obstruction, uvula midline. Mucous membranes moist. Neck: Trachea midline, no thyromegaly or masses palpated, and no cervical lymphadenopathy. Supple, full range of motion without nuchal rigidity, or vertebral point tenderness. No Meningismus. Chest/axilla: Normal chest wall appearance and motion. Nontender with no deformity. No lesions are appreciated. Cardiovascular: Regular rate and rhythm with a normal S1 and S2. No gallops, murmurs, or rubs. Normal PMI, no JVD. No pulse deficits. Respiratory: Lungs have equal breath sounds bilaterally, clear to auscultation and percussion. No rales, rhonchi or wheezes noted. No increased work of breathing, no retractions or nasal flaring. Abdomen/GI: Soft, non-tender, with normal bowel sounds. No distension or tympany. No guarding or rebound. No evidence of tenderness throughout. Skin: Warm, dry with normal turgor. Normal color with no rashes, no lesions, and no evidence of cellulitis. MS/ Extremity: Pulses equal, no cyanosis. Neurovascular intact. Full, normal range of motion. Neuro: Awake and alert, GCS 15, oriented to person, place, time, and situation. Cranial nerves II-XII grossly intact. Motor strength 5/5 in all extremities. Sensory grossly intact. Cerebellar exam normal. Normal gait. Vital Signs: 14:08 BP 170 / 105; Pulse 127; Resp 19; Temp 99.4(O); Pulse Ox 95% on R/A; Weight 121.56 kg tw2 (R); Height 5 ft. 9 in. (175.26 cm); Pain 10/10; 14:57 BP 165 / 130; Pulse 125; Resp 18 S; Pulse Ox 95% on R/A; ca1 15:44 BP 154 / 104; Pulse 124; Resp 17 S; Temp 99.4(O); Pulse Ox 95% on R/A; ca1 15:47 BP 154 / 104; Pulse 124; Resp 17 S; Temp 99.4(O); Pulse Ox 98% on R/A; ca1 16:36 BP 144 / 96; Pulse 107; Resp 18 S; Temp 99.2(O); Pulse Ox 97% on R/A; ca1 14:08 Body Mass Index 39.58 (121.56 kg, 175.26 cm) tw2 MDM: 14:11 Patient medically screened. kb 15:36 Data reviewed: vital signs, nurses notes. Data interpreted: Pulse oximetry: on room air kb is 95 %. Interpretation: normal. 15:43 Counseling: I had a detailed discussion with the patient and/or guardian regarding: the kb historical points, exam findings, and any diagnostic results supporting the discharge/admit diagnosis, lab results, radiology results, the need for outpatient follow up, a family practitioner, to return to the emergency department if symptoms worsen or persist or if there are any questions or concerns that arise at home. 03/30 14:22 Order name: Flu; Complete Time: 14:59 kb 03/30 14:22 Order name: Strep; Complete Time: 14:48 kb 03/30 14:50 Order name: Throat Culture EDMS 03/30 15:50 Order name: CBC with Diff; Complete Time: 16:50 kb 03/30 15:50 Order name: Basic Metabolic Panel; Complete Time: 16:25 kb 03/30 15:50 Order name: Grainger Screen Profile; Complete Time: 16:32 kb 03/30 14:22 Order name: Chest Pa And Lat (2 Views) XRAY kb 03/30 15:55 Order name: Urine Microscopic Only; Complete Time: 16:21 kb 03/30 15:55 Order name: Urine Dipstick--Ancillary (enter results); Complete Time: 16:09 kb 03/30 16:22 Order name: Urine Culture EDNM 03/30 15:50 Order name: IV Start; Complete Time: 15:54 kb Administered Medications: 14:33 Drug: Ibuprofen 800 mg Route: PO; ca1 16:04 Follow up: Response: No adverse reaction; Pain is decreased ca1 15:24 Drug: cloNIDine 0.1 mg Route: PO; ca1 16:41 Follow up: Response: No adverse reaction; Blood pressure is lowered ca1 16:04 Drug: NS 0.9% 1000 ml Route: IV; Rate: 1000 ml; Site: right antecubital; ca1 16:55 Follow up: Urine output 260 ml; Response: No adverse reaction; IV Status: Completed ca1 infusion 16:41 Drug: Rocephin 1 grams Route: IV; Rate: calculated rate; Site: right antecubital; ca1 16:55 Follow up: Response: No adverse reaction; IV Status: Completed infusion ca1 Disposition: 03/31 07:07 Co-signature as Attending Physician, Andreas Ramey MD. rn Disposition: 03/30/19 16:35 Discharged to Home. Impression: Urinary tract infection, site not specified. - Condition is Stable. - Discharge Instructions: Urinary Tract Infection, Adult, [id number]. - Prescriptions for Augmentin 875- 125 mg Oral Tablet - take 1 tablet by ORAL route every 12 hours for 10 days; 20 tablet. - Medication Reconciliation Form, Thank You Letter, Antibiotic Education, Prescription Opioid Use form. - Follow up: Emergency Department; When: As needed; Reason: Worsening of condition. Follow up: Private Physician; When: 2 - 3 days; Reason: Recheck today's complaints, Continuance of care, Re-evaluation by your physician. Signatures: Dispatcher [employer] [facility] Josefina Cobos, ABRASIVE BAND WINDER-C ABRASIVE BAND WINDER-Andreas Horton MD MD rn Wise, Tara, RN RN tw2 Terri Barbosa RN RN ca1 Corrections: (The following items were deleted from the chart) 03/30 16:55 16:35 03/30/2019 16:35 Discharged to Home. Impression: Urinary tract infection, site ca1 not specified. Condition is Stable. Forms are Medication Reconciliation Form, Thank You Letter, Antibiotic Education, Prescription Opioid Use. Follow up: Emergency Department; When: As needed; Reason: Worsening of condition. Follow up: Private Physician; When: 2 - 3 days; Reason: Recheck today's complaints, Continuance of care, Re-evaluation by your physician. kb
[2019-03-30 16:43] LABS: Absolute Lymphocytes (CBC) 1.2 K/uL (0.7-4.9); Absolute Monocytes 1.2 K/uL (0.1-1.3); Absolute Neutrophil 11.8 K/uL (1.8-8.0); Basophils % 0.3 % (0-1.3); Eosinophils % 0.4 % (0-4.4); Hematocrit 50.2 % (39.6-49.0); Lymphocytes % 8.6 % (15.3-44.8); MPV 8.9 fL (7.6-11.3); Monocytes % 8.4 % (3.3-12.3); RBC Red Blood Cell Count 5.75 M/uL (4.33-5.43)
[2019-03-30] MEDS ORDERED: CEFTRIAXONE/SWI 1gm 1 GM/10 ML SYR ONE (16:53)
--- NOTE | 2019-03-30 17:18 | RAD REPORT ---
EXAM DESCRIPTION: Ran Chopra (2 Views)03/30/2019 2:41 pm CLINICAL HISTORY: Cough COMPARISON: December 2018 FINDINGS: The lungs appear clear of acute infiltrate. The heart is normal size IMPRESSION: No acute abnormalities displayed
== END 2019-03-30 16:55 | disposition home or self-care (01) ==
LOC: ER 13:59
DX: N39.0 Urinary tract infection, site not specified (principal); I10 Essential (primary) hypertension; F41.8 Other specified anxiety disorders
CPT/HCPCS: 36415; 71046; 80048; 81003; 81015; 85025; 86308; 87070; 87077; 87081; 87086; 87088; 87186; 87804; 96361; 96374; 99284; J0696; J7030

== ENCOUNTER 2020-11-16 20:24 | Emergency (ER) | payer OTHER ==
--- OUTSIDE RECORDS SUMMARY | 2020-11-16 20:27 | XMS REPORT | Clinical Summary ---
:1980 Author Organization [facility] Address [address] [place] [address] Care Team Providers Name Role Phone Asked, No Pcp Primary Care Provider Unavailable Allergies No Known Active Allergies Medications Medication Sig Dispensed Refills Start Date End Date Status lisinopril Take 40 mg by 0 Activ e (PRINIVIL,ZESTRIL) 40 mouth every mg tablet morning. ALPRAZolam (XANAX) 1 Take 1 mg by mouth 0 Active MG tablet 2 (two) times a day. furosemide (LASIX) 20 Take 20 mg by 0 Active mg tablet mouth every morning. clonIDINE (CATAPRES) Take 0.1 mg by 0 Active 0.1 MG tablet mouth as needed for high blood pressure. cholecalciferol, Take 1 capsule by 0 Active vitamin D3, (VITAMIN mouth once a week. D3 ORAL) Active Problems Problem Noted Date Closed displaced fracture of head of left radius 07/05 Encounters Date Type Specialty Care Team Description 02/03/2020 Telephone Orthopedic Surgery Krista Pierre MA 01/20/2020 Telephone Orthopedic Surgery Krista Pierre MA 01/17/2020 Orders Only Orthopedic Surgery Krista Pierre, Andreea d displaced fracture MA of head of left radius with routine he aling, subsequent enco unter (Primary Dx) 01/15/2020 Travel after 11/16/2019 Surgical History Surgery Date Site/Laterality Comments ELBOW SURGERY Left LEG SURGERY Bilateral ARTHROPLASTY, ELBOW, TOTAL 07/05/2019 Elbow/Left Proce dure: LEFT ELBOW RADIAL HEAD ARTHROPLAST Y, LEFT ELBOW CONTRACTURE RELE ASE; Surgeon: Nate Alicia M D; Location: [facility] 19 OR; Service: Orthopedics; La terality: Left; Medical devices from this surgery are in t he Implants section. Medical History Medical History Date Comments Anesthesia NHAP/NFHAP, dental c aps secured, denies having chest pains or SOB, no pro blems climbing 2 flights of stairs. Hypertension Snoring Motion sickness Anxiety Depression Does not exercise Elbow fracture, left 11/2018 Wears immobilizer a nd compression sleeve Social History Tobacco Use Types Packs/Day Years Used Date Current Every Day Smoker Cigarettes 0.25 Smokeless Tobacco: Never Used Alcohol Use Drinks/Week oz/Week Comments Never Alcohol Habits Answer Date Recorded How often do you have a drink containing alcohol? Never 06/25/2019 How many drinks containing alcohol do you have on a typical Not asked day when you are drinking? How often do you have six or more drinks on one occasion? No t asked Sex Assigned at Date Recorded Not on file Last Filed Vital Signs Not on file Plan of Treatment Health Maintenance Due Date Last Done Comments COVID-19 VACCINE (1 of 2) 1997 INFLUENZA VACCINE 05/23/2020 Implants Implanted Type Area District Loss Prevention Manager Device Shelf Model / Identifier Expiration Serial / Date Lot 10.0mm X 4.0mm Stem - [id number] IMPLANT Left: ACUMED 11/19/2024 TR [id number] S / Implanted: Qty: 1 on 07/05/2019 at [facility] [place] / [id number] Results Not on fileafter 11/16/2019 Insurance Payer Benefit Plan / Subscriber ID Effective Dates Phone Addre ss Type Group WORKERS COMP LO [id number] 2017-Prese Workers Rajan [facility]ERT [facility] [place] Isaac Metcalf Personal/Family Self 1980 [address] (Home) [place] [phone] [facility] (Work) [place] [address] Advance Directives For more information, please contact: [phone] Type Date Recorded Patient Lead Javascript Engineer Explanati on Advance Directives, Living Will and Medical Power of System Configuration Specialist
--- OUTSIDE RECORDS SUMMARY | 2020-11-16 20:27 | XMS REPORT | Continuity of Care Document ---
:[address] [facility] t Address [address] [place] [address] Care Team Providers Name Role Phone Asked, Pcp Primary Care Physician Unavailable Camille Luo Attending Clinician Ignacio SIERRA Attending Clinician Unavailable Payers Payer Name Policy Type Policy Effective Date Expiration Date Sour ce Number WORKERS xxxxxxxxxxx 2017 [place] COMPGALLAGHER [id number] 00:00:00 Dinah ROBERT [id number] 2017-PresentWo rkemily Comp Problems Condition Condition Condition Status Onset Resolution Last Treating Co mments Source Name Details Category Date Date Treatment Clinician Date Closed Closed Disease Active [place] displaced displaced 9-13 Meth pari fracture fracture 00:00: st of head of of head of 00 left left radius radius Panic Panic Problem Active [facility] - [episodic [episodic Rodolfo sheela paroxysmal paroxysmal l anxiety] anxiety] Outpat i ent Clinics HTN, goal HTN, goal Problem Active [facility] below below [facility] - 140/90 140/90 Memoria l Outpati ent Clinics Current Current Problem Active [facility] mild mild [facility] - 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 ent without without Clinics prior prior episode episode Adult BMI Adult BMI Problem Active [facility] 45.0-49.9 45.0-49.9 Luke s - kg/sq m kg/sq m Memoria l [facility] ent Clinics Tobacco Tobacco Problem Active [facility] use use [facility] - disorder, disorder, Rodolfo sheela continuous continuous l [facility] ent [facility] Generalize Generalize Problem Active C HI [facility] d anxiety d anxiety Luke s - disorder disorder Memori a l [facility] ent Clinics Neuropathy Neuropathy Problem Active [facility] l [facility] Allergies, Adverse Reactions, Alerts This patient has no known allergies or adverse reactions. Social History Social Habit Start Date Stop Date Quantity Comments Source History of tobacco Cigarette Smoker [place] use Jain History [facility] Alcohol Std Drinks Method ist History [facility] Alcohol Binge Jain Sex Assigned At [place] Jain Cigarettes smoked 2019-08-07 2019-08-07 [place] current (pack per 00:00:00 00:00:[address] day) - Reported Tobacco use and 2019-08-07 2019-08-07 Never used [place] exposure 00:00:00 00:00:00 Jain Alcohol intake 2019-08-07 2019-08-07 Lifetime [place] 00:00:00 00:00:00 non-drinker Jain (finding) History [facility] 2019-06-25 2019-06-25 1 [place] Alcohol Frequency 00:00:00 00:00:[address] Smoking Status Start Date Stop Date Source Current every day smoker 2019-08-07 00:00:00 Shar bates Jain Medications Ordered Filled Start Stop Current Ordering Indication Dosage Frequency Signature Comments Components Source Medication Medication Date Date Medication? Clinician (SIG) Name Name Duloxetine Duloxetine 2018-10 Yes Johnathan [address] HCl HCl 0-30 Gómez [facility] - 00:00: Memoria 00 [facility] lisinopril 2018-10 Yes 40mg QD Take 40 mg [place] (PRINIVIL,Z 0-16 by mouth Meth pari ESTRIL) 40 11:52: every st mg tablet 42 morning. ALPRAZolam 2018-10 Yes 1mg Q.5D Take 1 mg [place] (XANAX) 1 0-16 by mouth 2 Meth pari MG tablet 11:52: (two) st 42 times a day. furosemide 2018-10 Yes 20mg QD Take 20 mg [place] (LASIX) 20 0-16 by mouth Metho di mg tablet 11:52: every st 42 morning. clonIDINE 2019-1 Yes .1mg Take 0.1 [place] (CATAPRES) 0-16 mg by Methodi 0.1 MG 11:52: mouth as st tablet 42 needed for high blood pressure. cholecalcif 2018-10 Yes 1{capsu Q7D Take 1 [place] carlee, 0-16 le} capsule by Methodi vitamin D3, 11:52: mouth once st (VITAMIN D3 42 a week. ORAL) Xanax Xanax Yes Johnathan [address] [facility] Gómez [facility] ent Clinics Lisinopril Lisinopril Yes Johnathan [address] G[facility] ent [facility] Furosemide Furosemide Yes Johnathan [address] G[facility] ent Clinics Clonidine Clonidine Yes Johnathan [address] HCl HCl Gómez at bedtime [facility] ent [facility] Procedures This patient has no known procedures. Plan of Care Planned Activity Planned Date Details Comments Source Future Scheduled 2020-05-23 INFLUENZA VACCINE [place] [facility] Test 00:00:00 [code = INFLUENZA VACCINE] Future Scheduled 1997 COVID-19 VACCINE (1 [place] [facility] Test 00:00:00 of 2) [code = COVID-19 VACCINE (1 of 2)] Encounters Start End Encounter Admission Attending Care Care Encounter Source Date/Time Date/Time Type Type Clinicians Facility Department ID 2020-06-08 2020-06-08 Emergency [facility] [id number] 13:15:00 15:17:00 Christal Elizabeth [id number] [place] [id number] [place] [id number] 2020-04-09 2020-04-09 Outpatient Javier [place] [id number] [facility] [address] 10:43:00 10:43:00 [facility] 2020-04-09 2020-04-09 Outpatient Javier [place] [id number] 10:41:00 10:41:00 [facility] 2020-03-19 2020-03-19 Outpatient Javier [place] [id number] 09:00:00 09:00:00 [facility] - Your Policy Manager [facility] Medicine l Medicine Outpati ent Clinics 2020-02-14 2020-02-14 [facility] [id number] 10:30:00 10:30:00 [facility] - Drive [facility] Medicine l Medicine Outpati ent Clinics 2020-01-14 2020-01-14 [facility] [id number] 15:00:00 15:00:00 [facility] - Your Policy Manager [facility] Medicine l Medicine Outpati ent Clinics 2019-12-16 2019-12-16 [facility] [id number] 09:15:00 09:15:00 [facility] - Drive [facility] l Medicine Outpati ent Clinics 2019-11-15 2019-11-15 [facility] [id number] 09:45:00 09:45:00 [facility] [employer] [facility] Medicine Outpati ent Clinics 2019-11-13 2019-11-13 [facility] [id number] 15:00:00 15:00:00 [facility] - Your Policy Manager [facility] Medicine l Medicine Outpati ent Clinics 2019-09-18 2019-09-18 [facility] [id number] 11:30:00 11:30:00 t [facility] - Your Policy Manager [facility] Medicine l Medicine Outpati ent Clinics 2019-09-03 2019-09-03 [facility] [id number] 11:34:00 11:34:00 t [facility] - Your Policy Manager [facility] Medicine Medicine Outpati ent Clinics 2019-08-21 2019-08-21 [facility] [id number] 13:15:00 13:15:00 t [facility] - Drive [facility] Medicine l Medicine Outpati ent Clinics 2019-07-22 2019-07-22 [facility] [id number] 16:27:00 16:27:00 t [facility] - Your Policy Manager [facility] l Medicine Outpati ent Clinics 2019-07-22 2019-07-22 [facility] [id number] 13:00:00 13:00:[address] Luke s - Drive [facility] Medicine Outpati ent Clinics 2019-07-16 2019-07-16 [facility] [id number] 15:09:00 15:09:[address] Luke s - Drive [facility] Medicine Outpati ent Clinics 2019-06-28 2019-06-28 [facility] [id number] 14:11:00 14:11:[address] Luke s - Drive [facility] Medicine Outpati ent Clinics 2019-06-27 2019-06-27 [facility] [id number] 11:53:00 11:53:[address] Luke s - Drive [facility] Medicine Outpati ent Clinics 2019-06-19 2019-06-19 [facility] [id number] 08:21:00 08:21:00 t [facility] Your Policy Manager Luke s - Drive [facility] Medicine Outpati ent Clinics 2019-06-10 2019-06-10 [facility] [id number] 11:45:00 11:45:00 t [facility] Your Policy Manager Luke s - Drive [facility] Medicine Outpati ent Clinics 2019-05-07 2019-05-07 [facility] [id number] 16:45:00 16:45:00 t [facility] Your Policy Manager Luke s - Drive [facility] Medicine Outpati ent Clinics 2019-05-07 2019-05-07 [facility] [id number] 15:06:00 15:06:00 t [facility] Your Policy Manager Luke s - Drive [facility] Medicine Outpati ent Clinics 2019-04-09 2019-04-09 [facility] [id number] 13:45:00 13:45:[address] Luke s - Drive [facility] Medicine Outpati ent Clinics 2019-02-14 2019-02-14 [facility] [id number] 14:15:00 14:15:00 t [facility] Your Policy Manager Luke s - Drive [facility] Medicine Outpati ent Clinics Results This patient has no known results.
--- NOTE | 2020-11-16 20:57 | ER ---
Nurse's Notes [facility] Name: Isaac Metcalf Age: 40 yrs Sex: Male : 1980 Arrival Date: 11/16/2020 Time: 20:26 Bed Waiting Private MD: Diagnosis: Presentation: 11/16 20:54 Note call not found 2050. rr5 ED Course: 20:26 Patient arrived in ED. cl3 Administered Medications: No medications were administered Outcome: 20:57 Patient left the ED. rr5 Signatures: Milad Ruff RN RN rr5 Jack Sevilla cl3
== END 2020-11-16 20:57 | disposition left against medical advice (07) ==
LOC: ER 20:24
DX: R69 Illness, unspecified (principal); Z53.21 Procedure and treatment not carried out due to patient leaving prior to being seen by health care provider

== ENCOUNTER 2021-03-28 13:10 | Emergency (ER) | payer OTHER, SELFPAY ==
--- OUTSIDE RECORDS SUMMARY | 2021-03-28 13:14 | XMS REPORT | Continuity of Care Document ---
:1980 Author Organization [facility] t Address [address] [place] [address] Care Team Providers Name Role Phone Dahiana Vicente DO Attending Clinician Doctor Unassigned, Name Attending Clinician Unavailable Grimes Attending Clinician Simon CHANCE, M Attending Clinician Cami La MD Attending Clinician Anitha ANDERSON Attending Clinician Teressa ANDERSON Attending Clinician Justine Glass MD Attending Clinician Dahiana Stahl MD Attending Clinician Jimmy ANDERSON Attending Clinician Unknown Attending Clinician Unavailable Rich Lopez MD Attending Clinician Camille Luo Attending Clinician Jimmy ANDERSON Admitting Clinician Problems Condition Condition Condition Status Onset Resolution Last Treating Co mments Source Name Details Category Date Date Treatment Clinician Date Panic Panic Problem Active [facility] - [episodic [episodic Rodolfo sheela paroxysmal paroxysmal l anxiety] anxiety] Outpat i ent Clinics HTN, goal HTN, goal Problem Active [facility] below [facility] - 140/90 140/90 [facility] Current Current Problem Active [facility] mild mild [facility] - 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 ent without without Clinics prior prior episode episode Adult BMI Adult BMI Problem Active [facility] 45.0-49.9 45.0-49.9 Luke s - kg/sq m kg/sq m Memoria [facility] ent Clinics Tobacco Tobacco Problem Active [facility] use use [facility] - disorder, disorder, Rodolfo sheela continuous continuous l [facility] ent Clinics Generalize Generalize Problem Active C HI [facility] d anxiety d anxiety Luke s - disorder disorder Memori a l [facility] ent Clinics Neuropathy Neuropathy Problem Active [facility] - Memoria [facility] Clinics Allergies, Adverse Reactions, Alerts This patient has no known allergies or adverse reactions. Medications Ordered Filled Start Stop Current Ordering Indication Dosage Frequency Signature Comments Components Source Medication Medication Date Date Medication? Clinician (SIG) Name Name Duloxetine Duloxetine 2018-10 Yes Johnathan [address] HCl HCl 0-30 Gómez [facility] - 00:00: Memoria 00 l [facility] ent [facility] Xanax Xanax Yes Johnathan [address] [facility] Lisinopril Lisinopril Yes Johnathan [address] [facility] Furosemide Furosemide Yes Johnathan [address] Gómez kes - Memoria [facility] Clonidine Clonidine Yes Johnathan [address] HCl HCl Gómez at bedtime [facility] ent [facility] Procedures This patient has no known procedures. Encounters Start End Encounter Admission Attending Care Care Encounter Source Date/Time Date/Time Type Type Clinicians Facility Department ID 2021-03-23 2021-03-23 Emergency GILBERT Vicente [id number] 16:49:00 18:41:00 Nicci Elizabeth [id number] [place] [id number] [place] [id number] 2021-03-23 2021-03-23 Orders Doctor CASEY [id number] 00:00:00 00:00:00 Only Unassigned, ROLANDO [id number] [facility] [id number] 2021-01-04 2021-01-04 [facility] [id number] 00:00:00 00:00:00 [facility] PRIMARY [id number] CARE [id number] [facility] [id number] 2020-12-27 2020-12-27 Orders Doctor JACINTO [id number] 00:00:00 00:00:00 Only Unassigned, ROLANDO [id number] [facility] [id number] 2020-12-23 2020-12-23 Transition Lyudmila Montes [id number] 00:00:00 00:00:00 of Care Cinda Banksy [id number] [place] [id number] 2020-11-16 2020-12-22 [facility] [id number] 22:05:00 23:00:00 Encounter Yudith Welsh Rolando [id number] [facility] [id number] Avi Glass [id number] Jurgen Stahl 095 Eron Marquez Unknown, Attending Saurav Lopez Unknown, Attending Saurav Lopez 2020-06-08 2020-06-08 Emergency [facility] [id number] 13:15:00 15:17:00 Christal Elizabeth [id number] [place] [id number] [place] [id number] 2020-04-09 2020-04-09 [facility] [id number] [facility] 10:43:00 10:43:00 t [facility] Medicine Outpati ent Clinics 2020-04-09 2020-04-09 [facility] [id number] 10:41:00 10:41:00 t [facility] l Medicine Outpati ent Clinics 2020-03-19 2020-03-19 [facility] [id number] [facility] 09:00:00 09:00:00 [place] [employer] [facility] - [facility] Medicine l Medicine Outpati ent Clinics 2020-02-14 2020-02-14 [facility] [id number] 10:30:00 10:30:00 t [place] [employer] [facility] - [facility] l Medicine Outpati ent Clinics 2020-01-14 2020-01-14 [facility] [id number] 15:00:00 15:00:00 t [place] [employer] [facility] - [facility] Medicine Outpati ent Clinics 2019-12-16 2019-12-16 [facility] [id number] 09:15:00 09:15:00 t [place] [employer] [facility] - [facility] l Medicine Outpati ent Clinics 2019-11-15 2019-11-15 [facility] [id number] 09:45:00 09:45:00 t [place] [facility] Medicine Outpati ent Clinics 2019-11-13 2019-11-13 [facility] [id number] 15:00:00 15:00:00 t [place] [employer] [facility] - [facility] Medicine Medicine Outpati ent Clinics 2019-09-18 2019-09-18 [facility] [id number] 11:30:00 11:30:00 t [place] [employer] [facility] - [facility] l Medicine Outpati ent Clinics 2019-09-03 2019-09-03 [facility] [id number] 11:34:00 11:34:00 t [place] [employer] [facility] l Medicine Outpati ent Clinics 2019-08-21 2019-08-21 [facility] [id number] 13:15:00 13:15:[address] [place] [address] Luke s - Drive [facility] Medicine l Medicine Outpati ent Clinics 2019-07-22 2019-07-22 [facility] [id number] 16:27:00 16:27:[address] [place] [address] Luke s - Drive [facility] Medicine l Medicine Outpati ent Clinics 2019-07-22 2019-07-22 [facility] [id number] 13:00:00 13:00:00 [address] [place] [address] Luke s - Drive [facility] Medicine l Medicine Outpati ent Clinics 2019-07-16 2019-07-16 [facility] [id number] 15:09:00 15:09:00 [address] [place] [address] Luke s - Drive [facility] l Medicine Outpati ent Clinics 2019-06-28 2019-06-28 [facility] [id number] 14:11:00 14:11:00 [address] [place] [address] Luke s - Drive [facility] l Medicine Outpati ent Clinics 2019-06-27 2019-06-27 [facility] [id number] 11:53:00 11:53:[address] [place] [address] Luke s - Drive [facility] Medicine l Medicine Outpati ent Clinics 2019-06-19 2019-06-19 [facility] [id number] 08:21:00 08:21:[address] [place] [address] Luke s - Drive [facility] l Medicine Outpati ent Clinics 2019-06-10 2019-06-10 [facility] [id number] 11:45:00 11:45:00 [address] [place] [address] Luke s - Drive [facility] Medicine l Medicine Outpati ent Clinics 2019-05-07 2019-05-07 [facility] [id number] 16:45:00 16:45:[address] [place] [address] Luke s - Drive [facility] l Medicine Outpati ent Clinics 2019-05-07 2019-05-07 [facility] [id number] 15:06:00 15:06:00 [address] [place] [address] Luke s - Drive [facility] l Medicine Outpati ent Clinics 2019-04-09 2019-04-09 Outpatient Javier Herrerat [id number] 13:45:00 13:45:00 t [facility] 2019-02-14 2019-02-14 Outpatient Javier Herrerat [id number] [facility] St 14:15:00 14:15:00 [facility] ent Clinics Results This patient has no known results.
[2021-03-28] MEDS ORDERED: HYDROCODONE/APAP 10/325 TAB ONE (15:17)
[2021-03-28] MEDS ORDERED: ONDANSETRON 4 MG/2 ML VIAL ONE (15:17)
[2021-03-28] MEDS ORDERED: ONDANSETRON 4 MG (ODT) TAB ONE (15:21)
--- NOTE | 2021-03-28 16:19 | RAD REPORT ---
EXAM DESCRIPTION: RAD - Ankle Right 3 View - 03/28/2021 4:08 pm CLINICAL HISTORY: Right ankle pain status post injury FINDINGS: No fracture or dislocation is seen. Soft tissue swelling
--- NOTE | 2021-03-28 16:20 | RAD REPORT ---
EXAM DESCRIPTION: RAD - Foot Right 3 View - 03/28/2021 4:08 pm CLINICAL HISTORY: Right foot pain status post injury FINDINGS: No fracture or dislocation is seen
--- NOTE | 2021-03-28 16:25 | EDPHYS ---
Physician Documentation [facility] Name: Isaac Metcalf Age: 40 yrs Sex: Male : 1980 Arrival Date: 03/28/2021 Time: 13:14 Bed 7 Private MD: ED Physician Albert Tolbert HPI: 03/28 14:06 This 40 yrs old Male presents to ER via Wheelchair with complaints of Ankle jmm Injury. 14:06 The patient presents with an injury, pain. Onset: The symptoms/episode began/occurred jmm acutely, today. Associated signs and symptoms: Pertinent positives: swelling, tingling Pertinent negatives:. This is a 40 year old male with a history of htn that presents to the ED with complaints of ankle swelling. patient states he tripped due to drop foot. Denies head injury. Historical: - Allergies: 13:44 No Known Allergies; aa5 - PMHx: 13:44 Anxiety; Depression; Hypertension; aa5 - Immunization history:: Client reports receiving the 2nd dose of the Covid vaccine. - Social history:: Smoking status: Patient/guardian denies using tobacco. ROS: 14:06 Constitutional: Negative for fever, chills, and weight loss, Cardiovascular: Negative jmm for chest pain, palpitations, and edema, Respiratory: Negative for shortness of breath, cough, wheezing, and pleuritic chest pain. 14:06 MS/extremity: Positive for swelling. 14:06 All other systems are negative. Exam: 14:06 Constitutional: This is a well developed, well nourished patient who is awake, alert, jmm and in no acute distress. Head/Face: atraumatic. Eyes: EOMI, no conjunctival erythema appreciated ENT: Moist Mucus Membranes Neck: Trachea midline, Supple Chest/axilla: Normal chest wall appearance and motion. Cardiovascular: Regular rate and rhythm. No edema appreciated Respiratory: Normal respirations, no respiratory distress appreciated Abdomen/GI: Non distended, soft Back: Normal ROM 14:06 MS/ Extremity: Moves all extremities, no obvious deformities appreciated, no edema noted to the lower extremities Neuro: Awake and alert, normal gait Psych: Behavior is normal, Mood is normal, Patient is cooperative and pleasant 14:06 Musculoskeletal/extremity: swelling noted to the right ankle, dorsalis pulse, pain noted diffusely. Vital Signs: 13:42 BP 163 / 111; Pulse 89; Resp 18; Temp 97.7; Pulse Ox 100% on R/A; Weight 122.47 kg; aa5 Height 5 ft. 9 in. (175.26 cm); Pain 8/10; 15:30 BP 148 / 101; Pulse 91; Resp 20; Pulse Ox 99% on R/A; kg 17:10 BP 150 / 100; Pulse 100; Resp 20; Pulse Ox 99% on R/A; kg 13:42 Body Mass Index 39.87 (122.47 kg, 175.26 cm) aa5 MDM: 13:50 Patient medically screened. [facility] 16:23 Data reviewed: vital signs, nurses notes. Counseling: I had a detailed discussion with [facility] the patient and/or guardian regarding: the historical points, exam findings, and any diagnostic results supporting the discharge/admit diagnosis, radiology results, the need for outpatient follow up, to return to the emergency department if symptoms worsen or persist or if there are any questions or concerns that arise at home. ED course: Xray negative. Patient advised to follow up with ortho for further evaluation. patient understood and agrees with the plan of care. . 03/28 13:54 Order name: Ankle Right 3 View XRAY; Complete Time: 16:23 [facility] 03/28 13:54 Order name: Foot Right 3 View XRAY; Complete Time: 16:23 [facility] 03/28 15:57 Order name: Splint - Ankle: Aircast; Complete Time: 17:48 [facility] Administered Medications: 15:03 Drug: Zofran (Ondansetron) 4 mg Route: PO; kg 17:48 Follow up: Response: No adverse reaction; Pain is decreased kg 15:03 Drug: [place] (HYDROcodone-acetaminophen) 10 mg-325 mg 1 tabs Route: PO; kg 17:48 Follow up: Response: No adverse reaction; Pain is decreased kg 17:42 Drug: Valium (diazepam) 5 mg Route: PO; kg 18:02 Follow up: Response: No adverse reaction bp Disposition: 03/28/21 16:25 Discharged to Home. Impression: Sprain of ankle. - Condition is Stable. - Discharge Instructions: Ankle Sprain. - Prescriptions for Ibuprofen 800 mg Oral Tablet - take 1 tablet by ORAL route every 8 hours As needed take with food; 30 tablet. orphenadrine citrate 100 mg Oral Tablet Sustained Release - take 1 tablet by ORAL route 2 times per day As needed; 20 tablet. - Medication Reconciliation Form, Thank You Letter, Antibiotic Education, Prescription Opioid Use form. - Follow up: Cameron Telles DPM; When: 2 - 3 days; Reason: Recheck today's complaints, Continuance of care, Re-evaluation by your physician. Addendum: 03/30/2021 07:48 Co-signature as Attending Physician, Albert Tolbert MD I agree with the assessment and c londono plan of care. Signatures: Dispatcher [employer] EDAL Albert Tolbert MD MD cha Mickail, Joel, PA PA [facility] Cora Valdivia, RN RN aa5 Cameron Enriquez, RN RN bp Joy Huynh RN RN kg Corrections: (The following items were deleted from the chart) 03/28 15:03 14:49 Ankle Left 3 View ordered. [facility] 15:03 14:49 Foot Right 3 View ordered. [facility] 18:02 16:25 03/28/2021 16:25 Discharged to Home. Impression: Sprain of ankle. Condition is bp Stable. Forms are Medication Reconciliation Form, Thank You Letter, Antibiotic Education, Prescription Opioid Use. Follow up: Dr. Cameron Telles; When: 2 - 3 days; Reason: Recheck today's complaints, Continuance of care, Re-evaluation by your physician. arthur
--- NOTE | 2021-03-28 16:25 | ER ---
Nurse's Notes [facility] Name: Isaac Metcalf Age: 40 yrs Sex: Male : 1980 Arrival Date: 03/28/2021 Time: 13:14 Bed 7 Private MD: Diagnosis: Sprain of ankle Presentation: 03/28 13:42 Chief complaint: Rolled ankle stepping down from wheelchair ramp, c/o right ankle pain aa5 06/01. Coronavirus screen: At this time, the client does not indicate any symptoms associated with coronavirus-19. Ebola Screen: No symptoms or risks identified at this time. Initial Sepsis Screen: Does the patient meet any 2 criteria? No. Patient's initial sepsis screen is negative. Does the patient have a suspected source of infection? No. Patient's initial sepsis screen is negative. Risk Assessment: Do you want to hurt yourself or someone else? Patient reports no desire to harm self or others. Onset of symptoms was March 28, 2021. 13:42 Method Of Arrival: Wheelchair aa5 13:42 Acuity: MARK ANTHONY 4 aa5 Triage Assessment: 13:45 General: Appears in no apparent distress. uncomfortable, Behavior is calm, cooperative, bp appropriate for age. Pain: Complains of pain in left foot. EENT: No deficits noted. Neuro: No deficits noted. Cardiovascular: No deficits noted. Respiratory: No deficits noted. GI: No signs and/or symptoms were reported involving the gastrointestinal system. : No signs and/or symptoms were reported regarding the genitourinary system. Derm: No deficits noted. Musculoskeletal: Reports pain in left foot. Historical: - Allergies: 13:44 No Known Allergies; aa5 - PMHx: 13:44 Anxiety; Depression; Hypertension; aa5 - Immunization history:: Client reports receiving the 2nd dose of the Covid vaccine. - Social history:: Smoking status: Patient/guardian denies using tobacco. Screenin:23 Abuse screen: Denies threats or abuse. Denies injuries from another. Nutritional bp screening: No deficits noted. Tuberculosis screening: No symptoms or risk factors identified. Fall Risk None identified. Assessment: 14:21 General: SEE TRIAGE NOTE. bp 16:30 Reassessment: No changes from previously documented assessment. Patient and/or family bp updated on plan of care and expected duration. Pain level reassessed. 17:59 Reassessment: PT D/C HOME VIA W/C WITH FAMILY, DX WITH ANKLE SPRAIN. bp Vital Signs: 13:42 BP 163 / 111; Pulse 89; Resp 18; Temp 97.7; Pulse Ox 100% on R/A; Weight 122.47 kg; aa5 Height 5 ft. 9 in. (175.26 cm); Pain 8/10; 15:30 BP 148 / 101; Pulse 91; Resp 20; Pulse Ox 99% on R/A; kg 17:10 BP 150 / 100; Pulse 100; Resp 20; Pulse Ox 99% on R/A; kg 13:42 Body Mass Index 39.87 (122.47 kg, 175.26 cm) aa5 ED Course: 13:14 Patient arrived in ED. rg4 13:43 Triage completed. aa5 13:44 Arm band placed on. aa5 13:47 Raymond Borjas PA is PHCP. jmm 13:47 Albert Tolbert MD is Attending Physician. jmm 14:23 Patient has correct armband on for positive identification. Bed in low position. Call bp light in reach. Side rails up X2. 14:55 Joy Huynh, RN is Primary Nurse. kg 16:08 Ankle Right 3 View XRAY In Process Unspecified. EDMS 16:08 Foot Right 3 View XRAY In Process Unspecified. EDMS 16:24 Cameron Telles DPM is Referral Physician. jmm 17:46 Air splint placed by PCT to right ankle. Patient did not have IV access during this kg emergency room visit. Administered Medications: 15:03 Drug: Zofran (Ondansetron) 4 mg Route: PO; kg 17:48 Follow up: Response: No adverse reaction; Pain is decreased kg 15:03 Drug: [place] (HYDROcodone-acetaminophen) 10 mg-325 mg 1 tabs Route: PO; kg 17:48 Follow up: Response: No adverse reaction; Pain is decreased kg 17:42 Drug: Valium (diazepam) 5 mg Route: PO; kg 18:02 Follow up: Response: No adverse reaction bp Outcome: 16:25 Discharge ordered by MD. jmm 17:47 Discharged to home ambulatory, with significant other. kg 17:47 Condition: good 17:47 Discharge instructions given to patient, significant other, Instructed on discharge instructions, follow up and referral plans. Demonstrated understanding of instructions, follow-up care, medications, Prescriptions given X 2. 18:02 Patient left the ED. bp Signatures: Dispatcher [employer] EDMS Raymond Borjas PA PA jmm Calderon, Audri, RN RN aa5 Bren Pennington4 Cameron Enriquez RN RN bp Joy Huynh RN RN kg Corrections: (The following items were deleted from the chart) 14:23 14:21 General: SEE TRIAGE NOTE. bp bp
[2021-03-28] MEDS ORDERED: DIAZEPAM 5 MG TABLET ONE (17:59)
[2021-03-28 18:15] VITALS: TEMP 97.7
[2021-03-28 18:17] VITALS: O2SAT 99
[2021-03-28 18:20] VITALS: BP 150/100
== END 2021-03-28 18:02 | disposition home or self-care (01) ==
LOC: ER 13:10
DX: S93.401A Sprain of unspecified ligament of right ankle, initial encounter (principal); I10 Essential (primary) hypertension
CPT/HCPCS: 99284; J2405